=== PATIENT | female | born 1965 | race Two or more races ===

== ENCOUNTER 2019-07-25 14:38 | Emergency (ER) | payer MEDICAID, OTHER ==
[~2019-07-25] VITALS: Ht 160 cm; Wt 77.1 kg
[2019-07-25 15:33] LABS: Basophils # (auto) 0.1 10 ^3/uL (0-0.2); Basophils % (auto) 1.1 % (0.0-2.0); Eosinophils # (auto) 0.5 10 ^3/uL (0-0.8); Eosinophils % (auto) 7.3 % (0.0-7.0); Hemoglobin 11.7 g/dL (12.2-16.2); Lymphocytes % (auto) 30.5 % (10.0-50.0); Mean Corpuscular Hemoglobin 28.9 pg (28.0-32.0); Mean Corpuscular Hgb Conc. 33.5 g/dL (32.0-36.0); Mean Corpuscular Volume 86.1 fL (80.0-100.0); Monocytes # (auto) 0.5 10 ^3/uL (0-1.3); Monocytes % (auto) 8.1 % (0.0-12.0); Neutrophils # (auto) 3.4 10 ^3/uL (1.6-8.6); Nucleated Red Blood Cells % 0.1 %; Platelet Count (auto) 279 10^3/uL (140-450); Red Blood Cells 4.07 10^6/uL (4.0-5.20); Red Cell Distribution Width 12.8 % (11.8-14.3); White Blood Cell 6.4 10^3/uL (4.4-10.8)
[2019-07-25 15:42] LABS: Alanine Aminotransferase 39 U/L (13-56); Albumin 3.4 g/dL (3.4-5.0); Anion Gap 6 (5-15); Aspartate Aminotransferase 24 U/L (15-37); Blood Urea Nitrogen 16 mg/dL (7-18); Calcium 8.7 mg/dL (8.5-10.1); Carbon Dioxide 25 mmol/L (21-32); Chloride 110 mmol/L (98-107); Glucose 96 mg/dL (74-106); INR 0.95 (0.9-1.15); Partial Thromboplastin Time 24.8 sec (23.64-32.05); Potassium 4.2 mmol/L (3.5-5.1); Sodium 141 mmol/L (136-145)
[2019-07-25 15:47] LABS: Alkaline Phosphatase 161 U/L (45-117); BUN/Creatinine Ratio 19.5; Bilirubin, Total 0.2 mg/dL (0.2-1.0); GFR African American 94 mL/min; GFR Non-African American 78 mL/min; Total Protein 7.7 g/dL (6.4-8.2)
[2019-07-25 19:04] VITALS: BP 125/77
== END 2019-07-25 19:04 | disposition home or self-care (01) ==
LOC: EDBD 14:38 → ER 14:38
DX: R00.2 Palpitations (principal)
CPT/HCPCS: 36415; 71046; 71250; 80053; 84443; 84484; 85025; 85610; 85730; 93005

== ENCOUNTER 2021-02-03 10:12 | Emergency (ER) | payer MEDICAID ==
[~2021-02-03] VITALS: Ht 154.9 cm; Wt 74.8 kg
[2021-02-03 11:58] VITALS: BP 131/73
== END 2021-02-03 12:12 | disposition home or self-care (01) ==
LOC: ER 10:12
DX: R21 Rash and other nonspecific skin eruption (principal); E03.9 Hypothyroidism, unspecified